=== PATIENT | male | born 1950 | race Caucasian/White ===

== ENCOUNTER 2016-10-09 12:46 | Outpatient (RCR) | payer OTHER ==
[2016-09-05 11:29] LABS: BASOPHILS % (AUTO) 0 % (0-10); EOSINOPHILS % (AUTO) 0 % (0-10); LYMPHOCYTES % (AUTO) 5 % (12-44); MEAN CORPUSCULAR HEMOGLOBIN 32 PG (25-34); MEAN CORPUSCULAR HGB CONC 34 G/DL (32-36); MEAN CORPUSCULAR VOLUME 97 FL (80-99); MEAN PLATELET VOLUME 9.8 FL (7.4-10.4); MONOCYTES # (AUTO) 1.8 X 10^3 (0.0-1.0); MONOCYTES % (AUTO) 9 % (0-12); NEUTROPHILS # (AUTO) 17.5 X 10^3 (1.8-7.8); NEUTROPHILS % (AUTO) 86 % (42-75); PLATELET COUNT 231 10^3/uL (130-400); RED BLOOD COUNT 4.97 10^6/uL (4.35-5.85); RED CELL DISTRIBUTION WIDTH 15.4 % (10.0-14.5); WHITE BLOOD COUNT 20.3 10^3/uL (4.3-11.0)
[2016-09-05 11:51] LABS: ALANINE AMINOTRANSFERASE 68 U/L (0-55); ALBUMIN 3.6 GM/DL (3.2-4.5); ANION GAP 11 MMOL/L (5-14); ASPARTATE AMINO TRANSFERASE 46 U/L (5-34); BILIRUBIN,TOTAL 0.5 MG/DL (0.1-1.0); BLOOD UREA NITROGEN 12 MG/DL (7-18); BUN/CREATININE RATIO 17 (0-20); CALCIUM 9.2 MG/DL (8.5-10.1); CARBON DIOXIDE 33 MMOL/L (21-32); CHLORIDE 94 MMOL/L (98-107); CREATININE SERUM 0.71 MG/DL (0.60-1.30); GFR ESTIMATED > 60; GLUCOSE 154 MG/DL (70-105); HEMOLYSIS 11 (-100-29); ICTERUS 0.4 (-100-1.9); LACTATE DEHYDROGENASE 563 U/L (125-220); LIPEMIA 5 (-100-49); POTASSIUM 3.2 MMOL/L (3.6-5.0); SODIUM 138 MMOL/L (135-145); TOTAL PROTEIN 6.4 GM/DL (6.4-8.2)
[2016-09-11 12:10] LABS: BASOPHILS % (AUTO) 0 % (0-10); EOSINOPHILS # (AUTO) 0.1 10^3/uL (0.0-0.3); EOSINOPHILS % (AUTO) 1 % (0-10); LYMPHOCYTES % (AUTO) 5 % (12-44); MEAN CORPUSCULAR HEMOGLOBIN 33 PG (25-34); MEAN CORPUSCULAR HGB CONC 34 G/DL (32-36); MEAN CORPUSCULAR VOLUME 97 FL (80-99); MEAN PLATELET VOLUME 9.3 FL (7.4-10.4); MONOCYTES # (AUTO) 1.3 X 10^3 (0.0-1.0); MONOCYTES % (AUTO) 7 % (0-12); NEUTROPHILS # (AUTO) 16.9 X 10^3 (1.8-7.8); NEUTROPHILS % (AUTO) 87 % (42-75); PLATELET COUNT 219 10^3/uL (130-400); RED BLOOD COUNT 4.84 10^6/uL (4.35-5.85); RED CELL DISTRIBUTION WIDTH 15.3 % (10.0-14.5); WHITE BLOOD COUNT 19.3 10^3/uL (4.3-11.0)
[2016-09-11 12:37] LABS: ANION GAP 11 MMOL/L (5-14); BLOOD UREA NITROGEN 11 MG/DL (7-18); BUN/CREATININE RATIO 17 (0-20); CALCIUM 8.7 MG/DL (8.5-10.1); CARBON DIOXIDE 36 MMOL/L (21-32); CHLORIDE 93 MMOL/L (98-107); CREATININE SERUM 0.64 MG/DL (0.60-1.30); GFR ESTIMATED > 60; GLUCOSE 145 MG/DL (70-105); HEMOLYSIS 6 (-100-29); ICTERUS 0.5 (-100-1.9); LIPEMIA 0 (-100-49); POTASSIUM 2.8 MMOL/L (3.6-5.0); SODIUM 140 MMOL/L (135-145); URIC ACID 2.4 MG/DL (2.6-7.2)
[2016-09-13 13:29] LABS: ANION GAP 11 MMOL/L (5-14); BLOOD UREA NITROGEN 12 MG/DL (7-18); BUN/CREATININE RATIO 18; CALCIUM 8.5 MG/DL (8.5-10.1); CARBON DIOXIDE 33 MMOL/L (21-32); CHLORIDE 93 MMOL/L (98-107); CREATININE SERUM 0.68 MG/DL (0.60-1.30); GFR ESTIMATED > 60; GLUCOSE 264 MG/DL (70-105); POTASSIUM 3.3 MMOL/L (3.6-5.0); SODIUM 137 MMOL/L (135-145); URIC ACID 2.6 MG/DL (2.6-7.2)
[~2016-10-09] VITALS: Ht 180.3 cm; Wt 73.0 kg
[~2016-10-09 12:46] MED LIST: CARBOPLATIN 400 MG in D5W 50 ML IV(CANCER CTR) 50 ML IV SCH; ETOPOSIDE 170 MG in NORMAL SALINE (CANCER CENTER) 500 ML IV SCH; FOSAPREPITANT 150 MG/NS 150 MG IVPB (CANCER CTR) IV PRN; FUROSEMIDE 40 MG/4 ML INJ (CANCER CTR) IV ONE; NS IV 1000 ML (CANCER CTR) IV SCH; ONDANSETRON 16 MG, DEXAMETHASONE 10 MG/NS 50 ML IVPB IV SCH; PALONOSETRON 0.25 MG, DEXAMETHASONE 10 MG/NS 50 ML IVPB IV PRN; POTASSIUM CHL INJ (CANCER CTR) 10 MEQ in NS (IVPB) CANCER CENTER 50 ML IV ONE
[2016-10-09 13:22] LABS: BASOPHILS # (AUTO) 0.1 10^3/uL (0.0-0.1); BASOPHILS % (AUTO) 0 % (0-10); EOSINOPHILS % (AUTO) 0 % (0-10); LYMPHOCYTES # (AUTO) 0.7 X 10^3 (1.0-4.0); LYMPHOCYTES % (AUTO) 2 % (12-44); MEAN CORPUSCULAR HEMOGLOBIN 33 PG (25-34); MEAN CORPUSCULAR HGB CONC 35 G/DL (32-36); MEAN CORPUSCULAR VOLUME 97 FL (80-99); MONOCYTES # (AUTO) 2.7 X 10^3 (0.0-1.0); MONOCYTES % (AUTO) 9 % (0-12); NEUTROPHILS # (AUTO) 27.5 X 10^3 (1.8-7.8); NEUTROPHILS % (AUTO) 89 % (42-75); PLATELET COUNT 237 10^3/uL (130-400); RED BLOOD COUNT 3.77 10^6/uL (4.35-5.85); RED CELL DISTRIBUTION WIDTH 15.9 % (10.0-14.5)
[2016-10-09 13:57] LABS: ALANINE AMINOTRANSFERASE 79 U/L (0-55); ALBUMIN 2.9 GM/DL (3.2-4.5); ANION GAP 6 MMOL/L (5-14); ASPARTATE AMINO TRANSFERASE 59 U/L (5-34); BILIRUBIN,TOTAL 0.5 MG/DL (0.1-1.0); BLOOD UREA NITROGEN 13 MG/DL (7-18); BUN/CREATININE RATIO 24; CALCIUM 8.5 MG/DL (8.5-10.1); CARBON DIOXIDE 41 MMOL/L (21-32); CHLORIDE 81 MMOL/L (98-107); CREATININE SERUM 0.55 MG/DL (0.60-1.30); GFR ESTIMATED > 60; GLUCOSE 127 MG/DL (70-105); LACTATE DEHYDROGENASE 615 U/L (125-220); MAGNESIUM 1.8 MG/DL (1.8-2.4); POTASSIUM 3.6 MMOL/L (3.6-5.0); SODIUM 128 MMOL/L (135-145); TOTAL PROTEIN 5.5 GM/DL (6.4-8.2)
--- NOTE | 2016-10-09 14:07 | Diagnostic Imaging Report ---
INDICATION: Lymph node cancer and wheezing. PA and lateral views of the chest are obtained. No previous studies available this time for comparison. There is extensive abnormal increased density in right perihilar region which extends peripherally into the upper and mid lung zones. Right anterior chest wall port is in place with catheter tip projecting over the upper aspect of the right atrium. Is no evidence of pneumothorax. Left lung is clear with nonacute fracture involving the lateral aspect of the left eighth and ninth ribs. There is mild blunting of right costophrenic sulcus. IMPRESSION: Extensive infiltrate in the right lung which may be due to central mass resulting in bronchial obstruction. Clinical correlation is recommended. Bronchoscopy or CT imaging of the chest could be considered. Blunting of right gastric sulcus may be due to small amount of pleural fluid or thickening. Dictated by: Dictated on workstation # [id number]
[2016-10-09] MEDS ORDERED: PALONOSETRON HCL 0.25 MG, DEXAMETHASONE PF INJ (CANCER C 5 MG in NS (IVPB) CANCER CENTE... IV PRN (14:30)
[2016-10-09] MEDS ORDERED: D5W IV SCH (14:45)
[2016-10-09] MEDS ORDERED: CARBOPLATIN IV SCH (14:45)
[2016-10-09] MEDS ORDERED: DEXAMETHASONE IV SCH (15:00)
[2016-10-09] MEDS ORDERED: ONDANSETRON IV SCH (15:00)
[2016-10-09] MEDS ORDERED: ETOPOSIDE 150 MG in NORMAL SALINE (CANCER CENTER) 500 ML IV SCH (15:00)
[2016-10-09] MEDS ORDERED: [UNRECOGNIZED DRUG - OTHER] IV SCH (15:00)
[2016-10-11] MEDS ORDERED: OXYC15TA79 PO (09:52)
[2016-10-11] MEDS ORDERED: ZOLP10TA5 PO (09:52)
[2016-10-11] MEDS ORDERED: ALLO300T2 PO (09:52)
[2016-10-11] MEDS ORDERED: ATOR80TA76 PO (09:52)
[2016-10-11] MEDS ORDERED: ALBU18HF2 INH (09:52)
[2016-10-11] MEDS ORDERED: FENT1PAT11 TD (09:53)
[2016-10-11] MEDS ORDERED: MULT-35 PO (10:20)
[2016-10-11] MEDS ORDERED: ONDA8TAB12 PO (10:20)
[2016-10-11] MEDS ORDERED: SENN-140 PO (10:20)
[2016-10-11] MEDS ORDERED: ASPI-983 PO (10:20)
[2016-10-11] MEDS ORDERED: POTA10TA36 PO (10:20)
== END 2016-10-14 | disposition home or self-care (01) ==
LOC: ONC 12:46
PROVIDERS: ATTEND Internal Medicine Hematology & Oncology
DX: Z51.11 Encounter for antineoplastic chemotherapy (principal); C34.90 Malignant neoplasm of unspecified part of unspecified bronchus or lung; C79.51 Secondary malignant neoplasm of bone; Z72.0 Tobacco use
CPT/HCPCS: 36415; 36591; 71020; 80048; 80053; 83615; 83735; 84550; 85025; 96367; 96368; 96375; 96411; 96413; 96417; 99214

== ENCOUNTER 2016-10-10 14:27 | Inpatient (IN) | payer OTHER ==
[2016-10-10] VITALS (8 sets, daily range): BP systolic 100–112; BP diastolic 70–91
[~2016-10-10] VITALS: Ht 182.9 cm; Wt 77.1 kg
[2016-10-10] MEDS ORDERED: DILTIAZEM 25 MG/5 ML INJ (CARDIZEM) VIAL ONE (14:37)
[2016-10-10] MEDS ORDERED: DILTIAZEM 100 MG/VIAL (CARDIZEM) ADD-VANTAGE IV ONE (14:37)
[2016-10-10] MEDS ORDERED: SODIUM CHLORIDE (ADD-VANTAGE) 100 ML IV ONE (14:37)
[2016-10-10] MEDS ORDERED: DILTIAZEM DRIP 100 MG in SODIUM CHLORIDE (ADD-VANTAGE) 100 ML IV SCH (14:45)
[2016-10-10] MEDS ORDERED: DILTIAZEM 25 MG/5 ML INJ (CARDIZEM) VIAL IVP ONE ×2 (14:45→15:30)
[2016-10-10 14:49] LABS: BASOPHILS % (AUTO) 0 % (0-10); EOSINOPHILS # (AUTO) 0.1 10^3/uL (0.0-0.3); EOSINOPHILS % (AUTO) 0 % (0-10); LYMPHOCYTES # (AUTO) 0.5 X 10^3 (1.0-4.0); LYMPHOCYTES % (AUTO) 2 % (12-44); MEAN CORPUSCULAR HEMOGLOBIN 32 PG (25-34); MEAN CORPUSCULAR HGB CONC 33 G/DL (32-36); MEAN CORPUSCULAR VOLUME 98 FL (80-99); MEAN PLATELET VOLUME 10.3 FL (7.4-10.4); MONOCYTES # (AUTO) 2.1 X 10^3 (0.0-1.0); MONOCYTES % (AUTO) 7 % (0-12); NEUTROPHILS # (AUTO) 25.5 X 10^3 (1.8-7.8); NEUTROPHILS % (AUTO) 91 % (42-75); PLATELET COUNT 249 10^3/uL (130-400); RED BLOOD COUNT 3.98 10^6/uL (4.35-5.85); RED CELL DISTRIBUTION WIDTH 16.4 % (10.0-14.5); WHITE BLOOD COUNT 28.1 10^3/uL (4.3-11.0)
--- NOTE | 2016-10-10 14:57 | ED General ---
General Stated Complaint: LETHARGIC Source of Information: Patient Exam Limitations: No Limitations History of Present Illness Time Seen by Provider: 14:35 Initial Comments Here by EMS from [place], [place] with report of shortness of breath and rapid heart rate. Patient has lung cancer and is actively involved in chemotherapy currently with Dr. Mir as his oncologist. Denies fever or chills. Denies nausea or vomiting. Denies chest pain. Does admit to shortness of breath. EMS did give 1 L of fluid in route as well as a DuoNeb and multiple albuterol treatments. This apparently did help his oxygenation until arrival here. He currently is on nasal cannula with an O2 sat of 87 percent with 4 L of flow. Timing/Duration: 24 Hours Severity: Moderate, Severe Associated Systoms: No Chest Pain, No Cough, No Fever/Chills, Malaise, No Nausea/Vomiting, Shortness of Air, Weakness Allergies and Home Medications Allergies Coded Allergies: fluoxetine (Verified Allergy, Unknown, 09/08/16) tramadol (Verified Allergy, Unknown, 09/08/16) varenicline (Verified Allergy, Unknown, 09/08/16) Constitutional: see HPI, No chills, No fever, malaise, weakness EENTM: no symptoms reported Respiratory: see HPI, short of breath, wheezing Cardiovascular: see HPI, No chest pain, edema, other (irregular tachycardia) Gastrointestinal: no symptoms reported Genitourinary: no symptoms reported Musculoskeletal: no symptoms reported Skin: change in color All Other Systems Reviewed Negative Unless Noted: Yes Past Ewpuoye-Nzgsdr-Hfbwmj Hx Patient Social History Alcohol Use: Denies Use Recreational Drug Use: No Smoking Status: Current Everyday Smoker Type Used: Cigarettes Surgeries HX Surgeries: Yes (Port-A-Cath placement) Respiratory Hx Respiratory Disorders: Yes (lung cancer have 5 right) Cardiovascular Hx Cardiac Disorders: Yes Cardiac Disorders: High Cholesterol Musculoskeletal Hx Musculoskeletal Disorders: Yes Musculoskeletal Disorders: Gout Cancer Hx Cancer: Yes Cancer: Liver, Bone, Lung (so bone liver and) Reviewed Nursing Assessment Reviewed/Agree w Nursing PMH: No Family Medical History Significant Family History: No Pertinent Family Hx Physical Exam Vital Signs Vital Sign - Last 12Hours 10/10/16 10/10/16 10/10/16 14:40 14:56 14:58 Temp 97.6 Pulse 140 Resp 16 B/P (MAP) 104/87 Pulse Ox 97 O2 Flow Rate 40.00 FiO2 60 Capillary Refill : General Appearance: WD/WN, Moderate Distress (respiratory) HEENT: PERRL/EOMI, Pharynx Normal Neck: Non Tender, Supple Respiratory: Lungs Clear, Normal Breath Sounds Cardiovascular: No Murmur, Irregularly Irregular, Tachycardia Gastrointestinal: Non Tender, Soft Back: Normal Inspection, No CVA Tenderness, No Vertebral Tenderness Extremity: Non Tender, No Calf Tenderness, Pedal Edema Focused Exam Lactic Acid Level Laboratory Tests Test 10/10/16 14:39 Lactic Acid Level 1.78 MMOL/L (0.50-2.00) Progress/Results/Core Measures Results/Orders Lab Results Laboratory Tests Test 10/10/16 14:39 Range/Units White Blood Count 28.1 H 4.3-11.0 10^3/uL Red Blood Count 3.98 L 4.35-5.85 10^6/uL Hemoglobin 12.9 L 13.3-17.7 G/DL Hematocrit 39 L 40-54 % Mean Corpuscular Volume 98 80-99 FL Mean Corpuscular Hemoglobin 32 25-34 PG Mean Corpuscular Hemoglobin Concent 33 32-36 G/DL Red Cell Distribution Width 16.4 H 10.0-14.5 % Platelet Count 249 130-400 10^3/uL Mean Platelet Volume 10.3 7.4-10.4 FL Neutrophils (%) (Auto) 91 H 42-75 % Lymphocytes (%) (Auto) 2 L 12-44 % Monocytes (%) (Auto) 7 0-12 % Eosinophils (%) (Auto) 0 0-10 % Basophils (%) (Auto) 0 0-10 % Neutrophils # (Auto) 25.5 H 1.8-7.8 X 10^3 Lymphocytes # (Auto) 0.5 L 1.0-4.0 X 10^3 Monocytes # (Auto) 2.1 H 0.0-1.0 X 10^3 Eosinophils # (Auto) 0.1 0.0-0.3 10^3/uL Basophils # (Auto) 0.0 0.0-0.1 10^3/uL Neutrophils % (Manual) 93 % Monocytes % (Manual) 7 % Hypersegmented Neutrophils MODERATE Toxic Granulation 2+ Sodium Level 137 135-145 MMOL/L Potassium Level 3.4 L 3.6-5.0 MMOL/L Chloride Level 92 L 98-107 MMOL/L Carbon Dioxide Level 32 21-32 MMOL/L Anion Gap 13 5-14 MMOL/L Blood Urea Nitrogen 15 7-18 MG/DL Creatinine 0.53 L 0.60-1.30 MG/DL Estimat Glomerular Filtration Rate > 60 BUN/Creatinine Ratio 28 Glucose Level 177 H 70-105 MG/DL Lactic Acid Level 1.78 0.50-2.00 MMOL/L Calcium Level 8.3 L 8.5-10.1 MG/DL Magnesium Level 1.9 1.8-2.4 MG/DL Total Bilirubin 0.5 0.1-1.0 MG/DL Aspartate Amino Transf (AST/SGOT) 54 H 5-34 U/L Alanine Aminotransferase (ALT/SGPT) 77 H 0-55 U/L Alkaline Phosphatase 216 H 40-136 U/L Lactate Dehydrogenase 646 H 125-220 U/L Troponin I < 0.30 <0.30 NG/ML B-Type Natriuretic Peptide 120.3 H <100.0 PG/ML Total Protein 5.6 L 6.4-8.2 GM/DL Albumin 2.8 L 3.2-4.5 GM/DL My Orders Orders - NINFA CORLEY MD Sodium Chloride (Add-[place]) (Ns (Add-V (10/10/16 14:37) Diltiazem Drip (Cardizem Drip) (10/10/16 14:37) BNP (10/10/16 14:41) Cbc With Automated Diff (10/10/16 14:41) Comprehensive Metabolic Panel (10/10/16 14:41) Magnesium (10/10/16 14:41) Troponin I (10/10/16 14:41) Saline Lock/Iv-Start (10/10/16 14:41) Ekg Tracing (10/10/16 14:41) O2 (10/10/16 14:41) Monitor-Rhythm Ecg Trace Only (10/10/16 14:41) Chest 1 View, Ap/Pa Only (10/10/16 14:41) Sodium Chloride (Ad... W/Diltiazem Drip (10/10/16 14:45) Diltiazem Injection (Cardizem Injection) (10/10/16 14:45) Lactic Acid Analyzer (10/10/16 14:41) Blood Culture (10/10/16 14:41) Diltiazem Injection (Cardizem Injection) (10/10/16 14:37) Manual Differential (10/10/16 14:39) LDH (10/10/16 15:23) Diltiazem Injection (Cardizem Injection) (10/10/16 15:30) Ct Chest/Abdomen W (10/10/16 15:32) Iohexol Injection (Omnipaque 350 Mg/Ml 1 (10/10/16 15:45) Ns (Ivpb) (Sodium Chloride 0.9% Ivpb Bag (10/10/16 15:45) Fentanyl Injection (Sublimaze Injection (10/10/16 15:40) Piperacillin Sodium/Tazobactam (Zosyn Vi (10/10/16 17:00) Ns (Ivpb) (Sodium Chloride 0.9% Ivpb Bag (10/10/16 17:10) Medications Given in ED Current Medications Medications Dose Ordered Sig/Domingo Route Start Time Stop Time Status Last Admin Dose Admin Diltiazem HCl 10 mg ONCE ONCE IVP 10/10/16 14:45 10/10/16 14:46 DC 10/10/16 14:54 10 MG Diltiazem HCl 10 mg ONCE ONCE IVP 10/10/16 15:30 10/10/16 15:31 DC 10/10/16 15:10 10 MG Iohexol 100 ml ONCE ONCE IV 10/10/16 15:45 10/10/16 15:55 DC 10/10/16 16:37 100 ML Piperacillin Sod/ Tazobactam Sod 4.5 gm ONCE ONCE IV 10/10/16 17:00 10/10/16 17:01 DC 10/10/16 17:26 4.5 GM Sodium Chloride 100 ml ONCE ONCE IV 10/10/16 15:45 10/10/16 15:55 DC 10/10/16 16:37 80 ML Vital Signs/I&O Vital Sign - Last 12Hours 10/10/16 10/10/16 10/10/16 14:40 14:56 14:58 Temp 97.6 Pulse 140 140 Resp 16 16 B/P (MAP) 104/87 104/87 Pulse Ox 97 98 98 O2 Flow Rate 40.00 40.00 FiO2 60 Progress Note : Progress Note Seen and evaluated on arrival by EMS. IV by EMS. Labs, EKG and chest x-ray ordered. EKG shows atrial fibrillation with rapid ventricular response. Patient initiated on Vapotherm as well as started on Cardizem drip of 10 mg an hour after bolus of 10 mg. Patient's oxygenation improved to 97 percent on Vapotherm treatment. Monitor patient. 1523: Patient has advanced cancer per the with multiple metastatic points including bone and liver. I did go over the evaluation thus far and findings as well as concerns with the patient' s . He does report that they do not want heroic measures and patient is DO NOT RESUSCITATE. She has not elected for hospice with him yet but is interested in palliative care consult for end-of-life needs and pain control as needed. Palliative care consult placed. Patient seen by Be Corley, palliative care RN at 1540. 1645: Significant pneumonia and likely advancement of cancer noted on CT scan. I did discuss the case with Dr. ESPITIA. He will admit patient to the ICU for continuing therapy related to pneumonia. Initiated Zosyn 4.5 g IV and we will continue this as well as Levaquin and vancomycin for likely postobstructive pneumonia. I did discuss the case with Dr. Suero at 1655. He will follow in consult. I discussed the case with Dr. Phillips at 1706. He believes the heart rate is likely related to the underlying disease process. He is happy with A. fib controlled at heart rate less than 120 , which it currently is. I agree. We will continue Cardizem at 20 mg/h drip. We will continue Vapotherm. I did discuss all the findings and concerns with the patient's . She is understanding of the challenges related to underlying disease process of cancer with pneumonia. We will continue with IV antibiotics in hopes that that helps resolve some of the symptoms but we will not significant heroic measures and patient is DO NOT RESUSCITATE and DO NOT INTUBATE. Admit, inpatient status, critical condition. Off Sepsis protocol due to palliative care. Family agrees with plan. ECG Initial ECG Impression Date: Oct 10, 2016 Initial ECG Impression Time: 14:38 Initial ECG Rate: 137 Initial ECG Rhythm: A Fib/Flutter Initial ECG Impression: Atrial Fibrillation w/RVR Comment Atrial fibrillation with rapid ventricular response. Normal axis. No evidence of ST elevation [place]. No previous available for comparison. Interpreted by me. Diagnostic Imaging Diagonstic Imaging: Xray Plain Films/CT/US/NM/MRI: chest Comments NAME: BERE VAUGHAN [facility] REC#: [id number] PT STATUS: REG ER : 1950 PHYSICIAN: NINFA CORLEY MD ADMIT DATE: 10/10/16/ER Signed Date of Exam: 10/10/16 CHEST 1 VIEW, AP/PA ONLY INDICATION: Increased weakness, somnolence and malaise. EXAM: Frontal chest obtained at 3:31 hours p.m. and compared to yesterday. FINDINGS: There is extensive infiltrate throughout the right midlung and upper lobe, with increasing density in the right midlung compared to the prior study. There are some infiltrate in the right base, as well. There is no left-sided infiltrate. There is no pneumothorax or pleural fluid. Port-A-Cath is unchanged. IMPRESSION: Worsening extensive infiltrate in the right lung compared to the previous day. No pneumothorax or pleural fluid or other new finding. Dictated by: Dictated on workstation # [id number] Dict: 10/10/16 1539 Trans: 10/10/16 1546 Interpreted by: CAITLIN VELAZQUEZ MD Electronically signed by: CAITLIN VELAZQUEZ MD 10/10/16 1546 Reviewed: Reviewed by Me Diagonstic Imaging: CT Plain Films/CT/US/NM/MRI: chest, abdomen Comments VIA [facility] [place], [place] NAME: BERE VAUGHAN [facility] REC#: [id number] PT STATUS: REG ER : 1950 PHYSICIAN: NINFA CORLEY MD ADMIT DATE: 10/10/16/ER Draft Date of Exam:10/10/16 CT CHEST/ABDOMEN W PROCEDURE: CT chest and abdomen with contrast. TECHNIQUE: Multiple contiguous axial images were obtained through the chest and abdomen after the administration of intravenous contrast. INDICATION: History of lung cancer. A-Fib. 100 mL of Omnipaque 350 is administered intravenously. FINDINGS: CT chest: There is a heterogeneous mass in the medial aspect of the right upper lobe inseparable from a right paratracheal mediastinal mass and extending into the right hilum. This is collectively measuring 9.5 x 6.8 x 5.2 cm. There is also suspected extension in an infiltrative pattern into the right lung as well mostly involving the right upper lobe, which demonstrates obliteration of right upper lobe pulmonary artery and right upper lobe bronchus with largely atelectatic and consolidated right upper lobe. There is a moderate right pleural effusion. Atelectasis in the right lung base is seen. The left lung demonstrates mild dependent basilar atelectasis. The heart size is normal. The thoracic aorta is normal in caliber. The osseous structures appear grossly unremarkable. CT abdomen: There are numerous hepatic masses involving all lobes and largest in the left hepatic lobe measuring 7.3 x 5.5 cm compatible with metastases. The gallbladder is contracted with wall thickening and pericholecystic fluid. No calcified stones seen. The pancreas, the spleen, and the adrenal glands appear unremarkable. The abdominal aorta is normal in caliber. No para-aortic significantly enlarged lymph node seen. The kidneys have symmetric enhancement and contrast excretion. There is no hydronephrosis. IMPRESSION: CT chest: 1. There is a large central right upper lobe mass confluent with right paratracheal and right hilar lymph node masses with associated right upper lobe consolidation compatible with postobstructive atelectasis or pneumonia. 2. Moderate right pleural effusion. CT abdomen: 1. Numerous liver metastases. 2. Gallbladder wall thickening and pericholecystic fluid seen. The gallbladder is contracted with no calcified stones identified. This could potentially be secondary to the liver metastases; however, if there is a clinical concern for cholecystitis, then gallbladder ultrasound could be helpful. Dictated on workstation # [id number] Dict: 10/10/16 1636 Trans: 10/10/16 1656 [id number] Interpreted by: ARNOLDO MACE MD Electronically signed by: Departure Communication Time/Spoke to Admitting Phy: 16:45 Time/Spoke to Consulting Physi: 16:55 Impression Impression: Primary Impression: Metastatic lung cancer (metastasis from lung to other site) Qualified Codes: C34.91 - Malignant neoplasm of unspecified part of right bronchus or lung Additional Impression: Pneumonia involving right lung Qualified Codes: J18.1 - Lobar pneumonia, unspecified organism Disposition: ADMITTED INPATIENT Condition: Critical Decision to Admit Reason: Admit from ER (General) Decision to Admit/Date: Oct 10, 2016 Time/Decision to Admit Time: 16:45 Departure-Patient Inst. Referrals: NO,LOCAL PHYSICIAN (PCP/Family) Primary Care Physician NINFA CORLEY MD Oct 10, 2016 14:57
[2016-10-10 15:03] LABS: NEUTROPHILS % (MANUAL) 93 %
[2016-10-10 15:10] LABS: ALANINE AMINOTRANSFERASE 77 U/L (0-55); ALBUMIN 2.8 GM/DL (3.2-4.5); ANION GAP 13 MMOL/L (5-14); ASPARTATE AMINO TRANSFERASE 54 U/L (5-34); BILIRUBIN,TOTAL 0.5 MG/DL (0.1-1.0); BLOOD UREA NITROGEN 15 MG/DL (7-18); BUN/CREATININE RATIO 28; CALCIUM 8.3 MG/DL (8.5-10.1); CARBON DIOXIDE 32 MMOL/L (21-32); CHLORIDE 92 MMOL/L (98-107); CREATININE SERUM 0.53 MG/DL (0.60-1.30); GFR ESTIMATED > 60; GLUCOSE 177 MG/DL (70-105); MAGNESIUM 1.9 MG/DL (1.8-2.4); POTASSIUM 3.4 MMOL/L (3.6-5.0); SODIUM 137 MMOL/L (135-145); TOTAL PROTEIN 5.6 GM/DL (6.4-8.2)
[2016-10-10 15:16] LABS: TROPONIN I < 0.30 NG/ML (<0.30)
[2016-10-10] MEDS ORDERED: fentaNYL INJECTION 100 MCG/2 ML AMP IVP STA (15:40)
[2016-10-10] MEDS ORDERED: IOHEXOL 350 MG/ML 100 ML (OMNIPAQUE 350) VIAL IV ONE (15:45)
[2016-10-10] MEDS ORDERED: NS 100 ML (IVPB) BAG IV ONE (15:45)
--- NOTE | 2016-10-10 15:45 | Diagnostic Imaging Report ---
INDICATION: Increased weakness, somnolence and malaise. EXAM: Frontal chest obtained at 3:31 hours p.m. and compared to yesterday. FINDINGS: There is extensive infiltrate throughout the right midlung and upper lobe, with increasing density in the right midlung compared to the prior study. There are some infiltrate in the right base, as well. There is no left-sided infiltrate. There is no pneumothorax or pleural fluid. Port-A-Cath is unchanged. IMPRESSION: Worsening extensive infiltrate in the right lung compared to the previous day. No pneumothorax or pleural fluid or other new finding. Dictated by: Dictated on workstation # [id number]
--- NOTE | 2016-10-10 16:57 | Diagnostic Imaging Report ---
PROCEDURE: CT chest and abdomen with contrast. TECHNIQUE: Multiple contiguous axial images were obtained through the chest and abdomen after the administration of intravenous contrast. INDICATION: History of lung cancer. A-Fib. 100 mL of Omnipaque 350 is administered intravenously. FINDINGS: CT chest: There is a heterogeneous mass in the medial aspect of the right upper lobe inseparable from a right paratracheal mediastinal mass and extending into the right hilum. This is collectively measuring 9.5 x 6.8 x 5.2 cm. There is also suspected extension in an infiltrative pattern into the right lung as well mostly involving the right upper lobe, which demonstrates obliteration of right upper lobe pulmonary artery and right upper lobe bronchus with largely atelectatic and consolidated right upper lobe. There is a moderate right pleural effusion. Atelectasis in the right lung base is seen. The left lung demonstrates mild dependent basilar atelectasis. The heart size is normal. The thoracic aorta is normal in caliber. The osseous structures appear grossly unremarkable. CT abdomen: There are numerous hepatic masses involving all lobes and largest in the left hepatic lobe measuring 7.3 x 5.5 cm compatible with metastases. The gallbladder is contracted with wall thickening and pericholecystic fluid. No calcified stones seen. The pancreas, the spleen, and the adrenal glands appear unremarkable. The abdominal aorta is normal in caliber. No para-aortic significantly enlarged lymph node seen. The kidneys have symmetric enhancement and contrast excretion. There is no hydronephrosis. IMPRESSION: CT chest: 1. There is a large central right upper lobe mass confluent with right paratracheal and right hilar lymph node masses with associated right upper lobe consolidation compatible with postobstructive atelectasis or pneumonia. 2. Moderate right pleural effusion. CT abdomen: 1. Numerous liver metastases. 2. Gallbladder wall thickening and pericholecystic fluid seen. The gallbladder is contracted with no calcified stones identified. This could potentially be secondary to the liver disease; however, if there is a clinical concern for cholecystitis, then gallbladder ultrasound could be helpful. Dictated by: Dictated on workstation # [id number]
[2016-10-10] MEDS ORDERED: PIPERACILLIN/TAZO 4.5 GM VIAL (ZOSYN) IV ONE (17:00)
[2016-10-10] MEDS ORDERED: NS (IVPB) 100 ML ONE (17:10)
[2016-10-10] MEDS ORDERED: CATHETER FLUSH 10 ML SYR IV PRN (18:30)
[2016-10-10] MEDS: DILTIAZEM DRIP 100 MG/NS 100 ML IV SCH ×4 (18:30→19:45)
[2016-10-10] MEDS: NS IV 1000 ML 1,000 ML IV SCH (18:36)
[2016-10-10] MEDS: LEVOFLOXACIN 750 MG/D5W 150 ML PRE-MIX IV SCH (18:44)
[2016-10-10] MEDS ORDERED: VANCOMYCIN 1,750 MG/NS 500 ML IVPB IV NR ×2 (19:00)
[2016-10-10] MEDS: fentaNYL INJECTION 100 MCG/2 ML AMP IV PRN ×2 (21:45→23:12)
[2016-10-10 22:24] LABS: BILIRUBIN,URINE NEGATIVE (NEGATIVE); KETONES,URINE NEGATIVE (NEGATIVE); LEUKOCYTE ESTERASE ,URINE NEGATIVE (NEGATIVE); NITRITE,URINE NEGATIVE (NEGATIVE); PH,URINE 6.5 (5-9); PROTEIN,URINE 3+ (NEGATIVE); UROBILINOGEN,URINE NORMAL (NORMAL)
[2016-10-10 22:30] LABS: WBC,URINE RARE /HPF
[2016-10-10] MEDS ORDERED: RT-ALBUTEROL/IPRATROPIUM 3 ML (DUONEB) VIAL INH PRN (22:30)
[2016-10-10] MEDS: PIPERACILLIN/TAZOBACTAM 4.5 GM/NS100 ML IVPB IV SCH ×2 (22:56)
[2016-10-11] VITALS (18 sets, daily range): BP systolic 102–134; BP diastolic 73–98
[2016-10-11] MEDS: fentaNYL INJECTION 100 MCG/2 ML AMP IV PRN ×12 (00:03→16:30)
[2016-10-11] MEDS ORDERED: fentaNYL INJECTION 100 MCG/2 ML AMP ONE ×3 (01:11→02:44)
[2016-10-11] MEDS: NS IV 1000 ML 1,000 ML IV SCH ×3 (03:04→16:34)
[2016-10-11 04:48] LABS: BASOPHILS % (AUTO) 0 % (0-10); EOSINOPHILS % (AUTO) 0 % (0-10); LYMPHOCYTES # (AUTO) 0.5 X 10^3 (1.0-4.0); LYMPHOCYTES % (AUTO) 2 % (12-44); MEAN CORPUSCULAR HEMOGLOBIN 33 PG (25-34); MEAN CORPUSCULAR HGB CONC 33 G/DL (32-36); MEAN CORPUSCULAR VOLUME 99 FL (80-99); MEAN PLATELET VOLUME 10.8 FL (7.4-10.4); MONOCYTES # (AUTO) 1.7 X 10^3 (0.0-1.0); MONOCYTES % (AUTO) 7 % (0-12); NEUTROPHILS % (AUTO) 91 % (42-75); PLATELET COUNT 212 10^3/uL (130-400); RED BLOOD COUNT 3.73 10^6/uL (4.35-5.85); WHITE BLOOD COUNT 24.2 10^3/uL (4.3-11.0)
[2016-10-11] MEDS: DILTIAZEM DRIP 100 MG/NS 100 ML IV SCH ×6 (04:51→14:43)
[2016-10-11 05:11] LABS: ALANINE AMINOTRANSFERASE 69 U/L (0-55); ALBUMIN 2.4 GM/DL (3.2-4.5); ANION GAP 6 MMOL/L (5-14); ASPARTATE AMINO TRANSFERASE 102 U/L (5-34); BILIRUBIN,TOTAL 0.5 MG/DL (0.1-1.0); BLOOD UREA NITROGEN 14 MG/DL (7-18); BUN/CREATININE RATIO 25; CALCIUM 7.8 MG/DL (8.5-10.1); CHLORIDE 95 MMOL/L (98-107); CREATININE SERUM 0.55 MG/DL (0.60-1.30); GFR ESTIMATED > 60; GLUCOSE 125 MG/DL (70-105); SODIUM 137 MMOL/L (135-145); TOTAL PROTEIN 6.2 GM/DL (6.4-8.2)
[2016-10-11 05:45] LABS: POTASSIUM 3.5 MMOL/L (3.6-5.0)
[2016-10-11 05:48] LABS: CARBON DIOXIDE 37 MMOL/L (21-32); MAGNESIUM 1.7 MG/DL (1.8-2.4)
[2016-10-11] MEDS ORDERED: POTASSIUM CL 10MEQ/50ML IVPB 50 ML IV SCH (06:00)
[2016-10-11] MEDS ORDERED: KCL 20 MEQ TAB (K-DUR) PO SCH (06:00)
[2016-10-11] MEDS ORDERED: MAGNESIUM 1 GM/100 ML IVPB 100 ML IV SCH (06:00)
[2016-10-11] MEDS: POTASSIUM CL 10MEQ/50ML IVPB 50 ML IV SCH ×2 (06:29→07:03)
[2016-10-11] MEDS: MAGNESIUM 1 GM/100 ML IVPB 100 ML IV SCH ×2 (06:29→07:03)
[2016-10-11] MEDS: PIPERACILLIN/TAZOBACTAM 4.5 GM/NS100 ML IVPB IV SCH ×4 (06:30→14:43)
[2016-10-11] MEDS: RT-ALBUTEROL/IPRATROPIUM 3 ML (DUONEB) VIAL INH SCH ×3 (06:49→14:35)
[2016-10-11] MEDS ORDERED: VANCOMYCIN 1 GM/NS 250 ML IVPB IV SCH ×2 (07:00)
--- NOTE | 2016-10-11 07:35 | Pulmonary Consultation ---
History of Present Illness History of Present Illness Date of Consultation 10/11/16 07:29 Time Seen by Provider: 07:30 Date of Admission History of Present Illness 65yo with hx of small cell lung cancer and sees Dr. Mir presented to ED via EMS secondary to progressive SOB and palpitations. Denies f/c, n/v, CP. Upon arrival pt was on 4 liters NC with Sp02 of 87%. Pt received SVN txs in EMS which seemed to help. PT started chemotherapy in August. states that he has been very lethargic and difficult to arouse. I am consulted for pulmonary management. Unable to obtain ROS secondary to MS. Allergies and Home Medications Allergies Coded Allergies: fluoxetine (Verified Allergy, Unknown, 09/08/16) tramadol (Verified Allergy, Unknown, 09/08/16) varenicline (Verified Allergy, Unknown, 09/08/16) Past Laiwggs-Vxjlhl-Abthwi Hx Patient Social History Alcohol Use: Denies Use Recreational Drug Use: No Smoking Status: Current Everyday Smoker Type Used: Cigarettes Recent Foreign Travel: No Contact w/Someone Who Travel: No Recent Infectious Disease Expo: No Recent Hopitalizations: No Physical Abuse Screen: No Sexual Abuse: No Seasonal Allergies Seasonal Allergies: No Surgeries HX Surgeries: Yes (Port-A-Cath placement) Respiratory Hx Respiratory Disorders: Yes (lung cancer have 5 right) Respiratory Disorders: Pneumonia Cardiovascular Hx Cardiac Disorders: Yes Cardiac Disorders: High Cholesterol Gastrointestinal Gastrointestinal Disorders: Gastroesophageal Reflux Musculoskeletal Hx Musculoskeletal Disorders: Yes Musculoskeletal Disorders: Gout HEENT HEENT Disorders: Cataract Loss of Vision: Denies Hearing Impairment: Denies Cancer Hx Cancer: Yes Cancer: Liver, Bone, Lung Psychosocial Behavioral Health Disorders: Depression Blood Transfusions Adverse Reaction to a Blood Tr: No Reviewed Nursing Assessment Reviewed/Agree w Nursing PMH: No Family Medical History Significant Family History: No Pertinent Family Hx Family Medial History: Cardiovascular disease 19 FATHER ( at 52 from [place]) G8 BROTHER (One brother had failed heart transplant one brother CABG CHF [place]) Diabetes mellitus G8 SISTER Exam Exam Vital Signs Date Time Temp Pulse Resp B/P (MAP) Pulse Ox O2 Delivery O2 Flow Rate FiO2 10/11/16 06:49 92 Nasal Cannula 6.00 10/11/16 06:00 118 6 131/86 94 High Flow N/C 6.00 10/11/16 05:00 121 10 133/80 97 High Flow N/C 6.00 10/11/16 04:00 104 13 111/80 100 High Flow N/C 6.00 10/11/16 04:00 97.9 10/11/16 04:00 97 Vapotherm 30.00 60 10/11/16 04:00 96 High Flow N/C 6.00 10/11/16 03:00 114 13 109/73 100 High Flow N/C 8.00 10/11/16 02:00 91 17 113/98 91 High Flow N/C 8.00 10/11/16 01:00 98 17 119/86 96 Vapotherm 60.00 30.00 10/11/16 01:00 125 10/11/16 00:00 112 14 113/78 98 Vapotherm 60.00 30.00 10/11/16 00:00 98.3 10/11/16 00:00 97 Vapotherm 30.00 60 10/11/16 00:00 97 Vapotherm 30.00 10/10/16 23:00 101 16 112/91 98 Vapotherm 60.00 30.00 10/10/16 22:47 97 Vapotherm 30.00 70 10/10/16 22:15 95 97 70 10/10/16 22:00 105 24 112/84 99 Vapotherm 70.00 30.00 10/10/16 21:00 96 8 108/80 97 Vapotherm 70.00 30.00 10/10/16 21:00 97 Vapotherm 30.00 10/10/16 20:00 97 Vapotherm 30.00 70 10/10/16 20:00 110 25 105/70 100 Vapotherm 70.00 30.00 10/10/16 20:00 98.0 10/10/16 19:45 95 10/10/16 19:00 116 23 101/72 99 Vapotherm 70.00 30.00 10/10/16 19:00 102 10/10/16 18:29 96 Vapotherm 30.00 70 10/10/16 18:15 108/77 93 10/10/16 18:15 25 Vapotherm 70.00 30.00 10/10/16 18:00 120 104/90 93 Vapotherm 70.00 30.00 10/10/16 18:00 Vapotherm 30.00 70 10/10/16 18:00 Vapotherm 30.00 70 10/10/16 17:55 98.2 10/10/16 17:45 114 20 98 Vapotherm 60.00 10/10/16 14:58 97.6 140 16 104/87 98 40.00 10/10/16 14:56 140 16 104/87 98 10/10/16 14:40 97 40.00 60 I & O 10/11/16 07:00 Intake Total 750 ml Output Total 1600 ml Balance -850 ml General Appearance: WD/WN, Moderate Distress (respiratory) HEENT: PERRL/EOMI, Pharynx Normal Neck: Non Tender, Supple Respiratory: Lungs Clear, Normal Breath Sounds Cardiovascular: No Murmur, Irregularly Irregular, Tachycardia Capillary Refill: Less Than 3 Seconds Extremity: Non Tender, No Calf Tenderness, Pedal Edema Neurologic/Psychiatric: Other (very lethargic ) Skin: Normal Color, Warm/Dry Lymphatic: No Adenopathy Results Lab Laboratory Tests 10/10/16 14:39 10/11/16 04:40 Assessment/Plan Assessment/Plan -Small cell lung cancer with hepatic mets -ONcology consulted -Post obstructive PNA with sepsis and small pleural effusion currently on Levaquin, Zosyn and vanco -D/C Levaquin -Freeman cultures 255 Clinical Quality Measures DVT/VTE Risk/Contraindication: Risk Factor Score Per Nursin RFS Level Per Nursing on Admit: 4+=Very High DEVIN ISLAS DO Oct 11, 2016 07:34
--- NOTE | 2016-10-11 08:25 | Diagnostic Imaging Report ---
INDICATION: Metastatic lung cancer, dyspnea. TECHNIQUE: Single view chest 5:27 AM. CORRELATION STUDY: 10/10/2016 FINDINGS: Right IJ Krdnio-x-Jeld catheter is again noted tip at the level of the right atrium. Heart size stable. Significant opacification due to the large portion of the right lung medina again demonstrated overall generally stable. Left lung mildly hyperinflated but relatively clear. Old healed left posterior rib fractures. IMPRESSION: 1. Extensive infiltrate throughout the right lung overall relatively stable. Dictated by: Dictated on workstation # [id number]
[2016-10-11] MEDS ORDERED: RT-ALBUTEROL/IPRATROPIUM 3 ML (DUONEB) VIAL INH SCH (09:00)
--- NOTE | 2016-10-11 09:02 | Consultation-Cardiology ---
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 Has been on chemo but clinical condition has continued to deteriorate. He was brought to the ER by his yesterday with increasing weakness, somnolence and confusion. Was also found to be in a fib and we have been asked in card consult Has low back and hip and R rib cage pain that has been severe. Has been on narcotic analgesics Denies any card history Has recently been having leg swelling. Has gained 12 lbs since first chemo about a month Is currently on palliative care. Is thinking of discontinuing any further therapy for widespread met CA Review of Systems-Cardiology Review of Systems Constitutional: lightheadedness, malaise, tiredness, weight gain Eyes: No vision change Ears/Nose/Throat: No ear discharge, No nasal drainage, No recent hearing loss Respiratory: cough, shortness of breath Cardiovascular: chest pain, edema, palpitations Gastrointestinal: No nausea, poor appetite, No vomiting, No stool coloration changes Genitourinary: No dysuria, No hematuria Musculoskeletal: back pain Skin: No ulcerations Psychiatric/Neurological: No focal weakness, No seizure, No syncope Hematologic: No bleeding abnormalities All Other Systems Reviewed Negative Unless Noted: Yes [id number]-Xskpic Hx Patient Social History Alcohol Use: Denies Use Recreational Drug Use: No Smoking Status: Current Everyday Smoker Type Used: Cigarettes Recent Foreign Travel: No Recent Infectious Disease Expo: No Hospitalization with Isolation: Denies Physical Abuse Screen: No Sexual Abuse: No Past Medical History PMH As described under Assessment. Family Medical History Family History: Cardiovascular disease 19 FATHER ( at 52 from [place]) G8 BROTHER (One brother had failed heart transplant one brother CABG CHF [place]) Diabetes mellitus G8 SISTER Allergies and Home Medications Allergies Coded Allergies: fluoxetine (Verified Allergy, Unknown, 09/08/16) tramadol (Verified Allergy, Unknown, 09/08/16) varenicline (Verified Allergy, Unknown, 09/08/16) Physical Exam-Cardiology Physical Exam Vital Signs/I&O Vital Sign - Last 12Hours 10/10/16 10/10/16 10/10/16 10/10/16 22:00 22:15 22:47 23:00 Pulse 105 95 101 Resp 24 16 B/P (MAP) 112/84 112/91 Pulse Ox 99 97 97 98 O2 Delivery Vapotherm Vapotherm Vapotherm O2 Flow Rate 70.00 30.00 60.00 30.00 30.00 FiO2 70 70 10/11/16 10/11/16 10/11/16 10/11/16 00:00 00:00 00:00 00:00 Temp 98.3 Pulse 112 Resp 14 B/P (MAP) 113/78 Pulse Ox 97 97 98 O2 Delivery Vapotherm Vapotherm Vapotherm O2 Flow Rate 30.00 30.00 60.00 30.00 FiO2 60 10/11/16 10/11/16 10/11/16 10/11/16 01:00 01:00 02:00 03:00 Pulse 125 98 91 114 Resp 17 17 13 B/P (MAP) 119/86 113/98 109/73 Pulse Ox 96 91 100 O2 Delivery Vapotherm High Flow N/C High Flow N/C O2 Flow Rate 60.00 8.00 8.00 30.00 10/11/16 10/11/16 10/11/16 10/11/16 04:00 04:00 04:00 04:00 Temp 97.9 Pulse 104 Resp 13 B/P (MAP) 111/80 Pulse Ox 96 97 100 O2 Delivery High Flow N/C Vapotherm High Flow N/C O2 Flow Rate 6.00 30.00 6.00 FiO2 60 10/11/16 10/11/16 10/11/16 10/11/16 05:00 06:00 06:49 07:00 Pulse 121 118 120 Resp 10 6 B/P (MAP) 133/80 131/86 Pulse Ox 97 94 92 O2 Delivery High Flow N/C High Flow N/C Nasal Cannula O2 Flow Rate 6.00 6.00 6.00 10/11/16 10/11/16 10/11/16 07:00 07:43 08:00 Temp 97.9 Pulse 120 112 117 Resp 13 14 13 B/P (MAP) 104/74 104/74 131/74 Pulse Ox 93 96 96 O2 Delivery High Flow N/C High Flow N/C O2 Flow Rate 6.00 6.00 6.00 Intake and Output 10/11/16 00:00 Intake Total 700 ml Output Total 500 ml Balance 200 ml Capillary Refill : Less Than 3 Seconds Constitutional: other (somnolent but wakes and seem oriented when awake) HEENT: PERRL, No discharge, No EOMI, hearing is well preserved, No xanthelasmas are seen Neck: No carotid bruit, carotid pulses are 2 + bilaterally, with good upstrokes Respiratory: No accessory muscle use, other (diminished air entry at the bases) Cardiovascular: irregularly irregular, S1 and S2, systolic murmur (soft BRETT at the card base) Gastrointestinal: No tender, No guarding, No rebound, audible bowel sounds Extremities: No clubbing, No cyanosis, significant edema (bilateral pitting leg edema 2-3+) Neurologic/Psychiatric: other (generally weak and tired and somnolent), grossly intact Skin: No rash on exposed areas, No ulcerations on exposed areas Data Review Labs Laboratory Tests 10/10/16 14:39: White Blood Count 28.1H, Red Blood Count 3.98L, Hemoglobin 12.9L, Hematocrit 39L , Mean Corpuscular Volume 98, Mean Corpuscular Hemoglobin 32, Mean Corpuscular Hemoglobin Concent 33, Red Cell Distribution Width 16.4H, Platelet Count 249, Mean Platelet Volume 10.3, Neutrophils (%) (Auto) 91H, Lymphocytes (%) (Auto) 2L , Monocytes (%) (Auto) 7, Eosinophils (%) (Auto) 0, Basophils (%) (Auto) 0, Neutrophils # (Auto) 25.5H, Lymphocytes # (Auto) 0.5L, Monocytes # (Auto) 2.1H, Eosinophils # (Auto) 0.1, Basophils # (Auto) 0.0, Neutrophils % (Manual) 93, Monocytes % (Manual) 7, Hypersegmented Neutrophils MODERATE, Toxic Granulation 2 +, Sodium Level 137, Potassium Level 3.4L, Chloride Level 92L, Carbon Dioxide Level 32, Anion Gap 13, Blood Urea Nitrogen 15, Creatinine 0.53L, Estimat Glomerular Filtration Rate > 60, BUN/Creatinine Ratio 28, Glucose Level 177H, Lactic Acid Level 1.78, Calcium Level 8.3L, Magnesium Level 1.9, Total Bilirubin 0.5, Aspartate Amino Transf (AST/SGOT) 54H, Alanine Aminotransferase ( ALT/SGPT) 77H, Alkaline Phosphatase 216H, Lactate Dehydrogenase 646H, Troponin I < 0.30, B-Type Natriuretic Peptide 120.3H, Total Protein 5.6L, Albumin 2.8L 10/10/16 22:00: Urine Color YELLOW, Urine Clarity CLEAR, Urine pH 6.5, Urine Specific [place] 1.010L, Urine Protein 3+H, Urine Glucose (UA) NEGATIVE, Urine Ketones NEGATIVE, Urine Nitrite NEGATIVE, Urine Bilirubin NEGATIVE, Urine Urobilinogen NORMAL, Urine Leukocyte Esterase NEGATIVE, Urine RBC (Auto) 3+H, Urine RBC 2-5H, Urine WBC RARE, Urine Crystals NONE, Urine Bacteria NONE, Urine Casts NONE, Urine Mucus NEGATIVE, Urine Culture Indicated NO 10/11/16 01:00: Stool Occult Blood Immunoassay POSITIVEH 10/11/16 04:40: White Blood Count 24.2H, Red Blood Count 3.73L, Hemoglobin 12.2L, Hematocrit 37L , Mean Corpuscular Volume 99, Mean Corpuscular Hemoglobin 33, Mean Corpuscular Hemoglobin Concent 33, Red Cell Distribution Width 17.0H, Platelet Count 212, Mean Platelet Volume 10.8H, Neutrophils (%) (Auto) 91H, Lymphocytes (%) (Auto) 2L, Monocytes (%) (Auto) 7, Eosinophils (%) (Auto) 0, Basophils (%) (Auto) 0, Neutrophils # (Auto) 22.0H, Lymphocytes # (Auto) 0.5L, Monocytes # (Auto) 1.7H, Eosinophils # (Auto) 0.0, Basophils # (Auto) 0.0, Sodium Level 137, Potassium Level 3.5L, Chloride Level 95L, Carbon Dioxide Level 37H, Anion Gap 6, Blood Urea Nitrogen 14, Creatinine 0.55L, Estimat Glomerular Filtration Rate > 60, BUN /Creatinine Ratio 25, Glucose Level 125H, Calcium Level 7.8L, Magnesium Level 1.7L, Total Bilirubin 0.5, Aspartate Amino Transf (AST/SGOT) 102H, Alanine Aminotransferase (ALT/SGPT) 69H, Alkaline Phosphatase 186H, Total Protein 6.2L, Albumin 2.4L, Phosphorus Level 4.0 A/P-Cardiology Assessment/Admission Diagnosis PAF with RVR, likely precipitated by pulm pathology Widespread 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 Switch to oral when able to take meds by mouth Not suitable of anticoag (active GI bleed) Replenish lytes Monitor labs I had a detailed discussion with his and answered questions Prognosis appears poor Clinical Quality Measures DVT/VTE Risk/Contraindication: Risk Factor Score Per Nursin RFS Level Per Nursing on Admit: 4+=Very High RUBEN RODAS MD FACP FACC CCDS Oct 11, 2016 09:02
[2016-10-11] MEDS ORDERED: ATOR80TA76 PO (09:52)
[2016-10-11] MEDS ORDERED: ALBU18HF2 INH (09:52)
[2016-10-11] MEDS ORDERED: OXYC15TA79 PO (09:52)
[2016-10-11] MEDS ORDERED: ZOLP10TA5 PO (09:52)
[2016-10-11] MEDS ORDERED: ALLO300T2 PO (09:52)
[2016-10-11] MEDS ORDERED: FENT1PAT11 TD (09:53)
[2016-10-11] MEDS: LEVOFLOXACIN 750 MG/D5W 150 ML PRE-MIX IV SCH (09:56)
[2016-10-11] MEDS ORDERED: SENN-140 PO (10:20)
[2016-10-11] MEDS ORDERED: POTA10TA36 PO (10:20)
[2016-10-11] MEDS ORDERED: ONDA8TAB12 PO (10:20)
[2016-10-11] MEDS ORDERED: ASPI-983 PO (10:20)
[2016-10-11] MEDS ORDERED: MULT-35 PO (10:20)
--- NOTE | 2016-10-11 10:55 | History & Physical-Hospitalist ---
HPI History of Present Illness: HPI/Chief Complaint CC: AFib with RVR with right lung pneumonia post obstructive presumed HPI: This is a 65yoWM pt from [place], [place]. Pt sees Dr. Suero for right lung cancer with widespread METS dx [address] Leon Review: Dr. 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 Suero Still on Cardizem drip for afib w/rvr Pt is on 3 abx including Vancomycin and Levaquin SW Review: Pt's family is reasonable Patient Interview: Pt's and daughter were visiting upon interview. 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 Pt's states that pt was a [employer] and then worked for a [employer] company. 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 Jimenez. Source: patient Exam Limitations: no limitations Date Seen 10/11/16 Time Seen by Provider: 10:00 Attending Physician Bijan Pemberton MD PCP No,Local Physician Referring Physician Date of Admission Oct 10, 2016 at 17:05 Home Medications & Allergies Home Medications Reviewed patient Home Medication Reconciliation Form Allergies Allergies Coded Allergies fluoxetine (Verified Allergy, Unknown, 09/08/16) tramadol (Verified Allergy, Unknown, 09/08/16) varenicline (Verified Allergy, Unknown, 09/08/16) Past Buflwvg-Qersld-Rltruq Hx Patient Social History Marrital Status: Employed/Student: retired ([employer] 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 [employer]) Alcohol Use: Denies Use Recreational Drug Use: No Smoking Status: Current Everyday Smoker Type Used: Cigarettes Physical Abuse Screen: No Sexual Abuse: No Recent Foreign Travel: No Contact w/other who traveled: No Recent Hopitalizations: No Recent Infectious Disease Expo: No Seasonal Allergies Seasonal Allergies: No Surgeries HX Surgeries: Yes (Port-A-Cath placement) Respiratory Hx Respiratory Disorders: Yes (lung cancer have 5 right) Respiratory Disorders: COPD, Pneumonia Cardiovascular Hx Cardiovascular Disorders: Yes Cardiac Disorders: Atrial Fibrillation (currently), High Cholesterol Neurological Hx Neurological Disorders: No Genitourinary Hx Genitourinary Disorders: No Gastrointestinal Hx Gastrointestinal Disorders: Yes Gastrointestinal Disorders: Gastroesophageal Reflux Musculoskeletal Hx Musculoskeletal Disorders: Yes Musculoskeletal Disorders: Arthritis, Gout Endocrine Hx Endocrine Disorders: No HEENT HX ENT Disorders: Yes HEENT Disorders: Cataract Loss of Vision: Denies Hearing Impairment: Denies Cancer Hx Cancer: Yes Cancer: Liver, Bone, Lung Psychosocial Hx Psychiatric Problems: Yes Behavioral Health Disorders: Depression Blood Transfusions Adverse Reaction to a Blood Tr: No Reviewed Nursing Assessment Reviewed/Agree w Nursing PMH: No Family Medical History Significant Family History: No Pertinent Family Hx Family Hx: Cardiovascular disease 19 FATHER ( at 52 from [place]) G8 BROTHER (One brother had failed heart transplant one brother CABG CHF [place]) Diabetes mellitus G8 SISTER Review of Systems Constitutional: see HPI EENTM: no symptoms reported Respiratory: cough, short of breath Cardiovascular: chest pain, palpitations Gastrointestinal: nausea, vomiting Genitourinary: no symptoms reported Musculoskeletal: back pain Skin: no symptoms reported Psychiatric/Neurological: Depressed All Other Systems Reviewed Negative Unless Noted: Yes Physical Exam Physical Exam Vital Signs Vital Sign - Last 12Hours 10/10/16 10/10/16 10/10/16 10/10/16 14:40 14:56 14:58 17:45 Temp 97.6 Pulse 140 Resp 16 B/P (MAP) 104/87 Pulse Ox 97 O2 Delivery Vapotherm O2 Flow Rate 40.00 FiO2 60 Capillary Refill : Less Than 3 Seconds General Appearance: No Apparent Distress, WD/WN, Chronically ill, Other ( sleeping) Eyes: Bilateral Eye Normal Inspection, Bilateral Eye PERRL HEENT: PERRL/EOMI, Normal ENT Inspection, Pharynx Normal Neck: Full Range of Motion, Normal Inspection, Non Tender, Supple, Carotid Bruit Respiratory: Chest Non Tender, Lungs Clear, No Accessory Muscle Use, No Respiratory Distress, Decreased Breath Sounds Cardiovascular: No Edema, No Gallop, No JVD, No Murmur, Normal Peripheral Pulses, Irregularly Irregular Gastrointestinal: Normal Bowel Sounds, No Organomegaly, No Pulsatile Mass, Non Tender, Soft Back: Normal Inspection, No CVA Tenderness, No Vertebral Tenderness Extremity: Normal Capillary Refill, Normal Inspection, Normal Range of Motion, Non Tender, No Calf Tenderness, No Pedal Edema Neurologic/Psychiatric: Other (drowsy) Skin: Normal Color, Warm/Dry Lymphatic: No Adenopathy Results Results/Procedures Lab Laboratory Tests 10/10/16 14:39 10/11/16 04:40 Assessment/Plan Admission Diagnosis Assessment: Acute right lung pneumonia likely obstructive Widespread lung cancer with metastasis Smoker Acute atrial fibrillation with rapid ventricular response requiring Cardizem drip Hypokalemia Leukocytosis due to illness Elevated liver enzymes due to metastasis Assessment and Plan Plan: Remove wedding ring due to edema occurring Palliative care consult Very poor prognosis Abx Rate control Clinical Quality Measures DVT/VTE Risk/Contraindication: Risk Factor Score Per Nursin RFS Level Per Nursing on Admit: 4+=Very High ENRIQUE JIMENEZ DO Oct 11, 2016 10:55
[2016-10-11] MEDS ORDERED: ACETAMINOPHEN 650 MG SUPP (TYLENOL) PR PRN (17:30)
[2016-10-11] MEDS ORDERED: ARTIFICAL TEARS 0.4 ML UNIT DOSE (REFRESH PLUS) OU PRN (17:30)
[2016-10-11] MEDS ORDERED: PROMETHAZINE INJ 25 MG/ML (PHENERGAN) AMP IVP PRN (17:30)
[2016-10-11] MEDS ORDERED: ARTIFICIAL TEARS OINT (LACRI-LUBE) 3.5 GM TUBE OU PRN (17:30)
[2016-10-11] MEDS ORDERED: ONDANSETRON 4 MG/2 ML (SDV) Z0FRAN IVP PRN (17:30)
[2016-10-11] MEDS ORDERED: RT-ALBUTEROL/IPRATROPIUM 3 ML (DUONEB) VIAL INH PRN (17:30)
[2016-10-11] MEDS ORDERED: SALIVA STIMULANT MOUTH SPRAY (BIOTENE) 1.5 OZ MM PRN (17:30)
[2016-10-11] MEDS: LORazepam INJ 2 MG/ML (ATIVAN) VIAL IVP PRN ×3 (17:40→22:58)
[2016-10-11] MEDS: morphine INJ 4 MG/ML 1 ML (VIAL/SYRINGE) IV PRN ×5 (17:40→22:58)
[2016-10-12] MEDS: LORazepam INJ 2 MG/ML (ATIVAN) VIAL IVP PRN ×9 (03:21→22:42)
[2016-10-12] MEDS: morphine INJ 4 MG/ML 1 ML (VIAL/SYRINGE) IV PRN ×11 (03:22→22:42)
--- NOTE | 2016-10-12 08:55 | CONSULTATION REPORT ---
DATE OF CONSULTATION: 10/11/2016 REFERRING PHYSICIAN: Milena Loco D.O. The patient is admitted to ICU bed 12. IMPRESSION: 1. 65-year-old male with recent diagnosis of extensive stage small cell lung cancer of the right upper lobe with extensive the liver and bone metastasis, status post palliative chemotherapy with carboplatin and etoposide regimen x1 cycle 4 weeks ago. 2. The patient had started second cycle of chemotherapy on 10/09/2016 but presented to the emergency room on 10/10/2016 with increasing shortness of breath, altered mental status and uncontrolled pain. Admitted to ICU with a diagnosis of atrial fibrillation with a rapid ventricular response, hypoxia and probable right upper lobe postobstructive pneumonia. 3. Uncontrolled pain in his hip as well as chest because of metastatic small cell lung cancer, was scheduled for radiation therapy palliatively to the left hip and to the right upper lobe lung mass, but currently on hold because of hospitalization. 4. Comparison of outside CT scan at the time of diagnosis and the current CT scan from this hospitalization shows evidence of progressive disease in the liver and probably in the lung. RECOMMENDATIONS: 1. Continue management of probable pneumonia as you are doing with broad-spectrum antibiotics. 2. Agree with cardiology evaluation for atrial fibrillation with rapid ventricular response and manage it medically. 3. Today I had an extensive discussion with the patient and family regarding the CT scan findings of progressive disease. I informed them that primary resistant small cell lung cancer does not behave very well and the chance of response with a second line chemotherapy is in the 40 to 45% range. He is not going to be a candidate for a clinical trial as he has to travel out of town frequently and his poor performance status may disqualify him. 4. Because of evidence of progressive disease by CT scan. I will withhold further chemotherapy at this point. I would recommend palliative radiation therapy to the left hip and the right upper lobe lung mass to control the pain. 5. Continue pain medications and titrate as needed to control his discomfort. 6. His overall prognosis is poor. The patient and his family understand this and does not want aggressive treatments for the cancer. 7. I will follow the patient with you. BRIEF HISTORY: Mr. Rico is a 65-year-old male who was initially seen by me on 09/08/2016 with a new diagnosis of extensive stage small cell lung cancer. The patient had developed chest pain during the previous few weeks and was evaluated at [place] emergency room. He was started on antibiotics without improvement and had a repeat ER visit with CT scan of the chest, which showed a large mass. He was sent to [facility] in [place] where he underwent a bronchoscopy with biopsy followed by a PET CT scan and MRI of the head with the diagnosis of small cell lung cancer. He had evidence of metastasis to the lymph nodes, extensive liver disease as well as to the bone. MRI of the head was negative. The patient wanted to be closer to home for chemotherapy and hence, I saw him in consultation and started him on first cycle of chemotherapy soon thereafter. He has had multiple problems following the first course of chemotherapy and did not tolerate this well. He was seen in the office on 10/09/2016 and started day 1 of cycle 2 chemotherapy but had to be hospitalized the next day because of altered mental status, shortness of breath and hypoxia. PAST MEDICAL HISTORY: Significant for: 1. Osteoarthritis and a history of gout. 2. Hypercholesterolemia diagnosed 5 years ago and on treatment. 3. Gastroesophageal reflux disease for several years. 4. He has a history of chronic prostatitis. PRIOR SURGERIES: Include: 1. Cystoscope for chronic prostatitis. 2. Left cataract surgery in 2010. 3. Bronchoscopy with biopsy of the lung mass in August 2016. SOCIAL HISTORY: The patient is and lives in [place], [place]. He has a stepdaughter who lives in [place], [place]. 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 He retired approximately 9 years ago. He has a 60 pack-year history of tobacco use. He quit smoking at the time of diagnosis. He uses alcohol socially and denied any recreational drug use. FAMILY HISTORY: Family history is only significant for an unknown malignancy in his half brother. No other malignancies in the family. Father had coronary artery disease and [place]. His half brother has history of hypertension and coronary artery disease. PHYSICAL EXAMINATION: Today showed an elderly male, weak appearing, answering some questions appropriately, although having difficulty remembering details. VITAL SIGNS: Temperature was 98, pulse rate of 123, respirations 15, blood pressure 102/90, oxygen saturation 97% on 6 liters of oxygen by nasal cannula. HEENT: Normocephalic with male pattern baldness. Extraocular muscles intact. Conjunctivae pink, oral mucosa moist. NECK: Supple with no JVD. No cervical, supraclavicular, or axillary lymphadenopathy palpable. CHEST: Chest examination showed port. LUNGS: With diminished breath sounds in the right lung with few rhonchi. No wheezes or rales heard. CARDIOVASCULAR EXAM: Was irregularly irregular, tachycardic with no murmurs. ABDOMEN: Soft with liver edge palpable below the costal margin. No splenomegaly or other masses palpable. EXTREMITIES: Showed 1+ edema around both ankles. NEUROLOGICAL EXAM: Showed no focal motor deficits. Overall motor strength was 4/5 bilaterally. LABORATORY: CBC done today showed WBC 24.2, hemoglobin 12.2, platelet count 212,000 with neutrophil count of 22. Chemistry panel done today showed potassium level of 3.5 and CO2 level of 37. BUN was 14 and creatinine 0.55. Nonfasting glucose was 125. AST was elevated at 102, ALT 69, alkaline phosphatase 186, and albumin level of 2.4. LDH was elevated at 646. CT scan of the chest and abdomen done at the emergency room on 10/10/2016 showed a large central right upper lobe mass confluent with right paratracheal and right hilar lymph node masses with associated right upper lobe consolidation, compatible with postobstructive atelectasis or pneumonia. Moderate right pleural effusion was present. CT scan of the abdomen showed numerous liver metastases with the largest lesion in the left hepatic lobe measuring 7.3 x 5.5 cm. The liver was almost completely replaced by tumor. Gallbladder wall thickening and pericholecystic fluid same. No calcified stones identified. DC images where compared to the outside CT scan from [facility] and a verbal report from Dr. Farr indicated there is definite progression of several of the liver lesions. The right upper lobe lung mass could not be completed as the current CT scan showed a confluent mass involving the hilar and mediastinal lymph nodes. Thank you for allowing me to participate in this patient's care. I will follow the patient with you and make appropriate recommendations. Job ID: [id number] Dictated Date: 10/11/2016 17:34:41 Pouring Crane Operator Date: 10/12/2016 08:34:36/luci
--- NOTE | 2016-10-12 10:29 | Progress Note-Hospitalist ---
Progress Note HPI/CC on Admission CC: AFib with RVR with right lung pneumonia post obstructive presumed HPI: This is a 65yoWM pt from [place], [place]. Pt sees Dr. Suero for right lung cancer with widespread METS dx [address] Leon Review: Dr. 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 Suero Still on Cardizem drip for afib w/rvr Pt is on 3 abx including Vancomycin and Levaquin SW Review: Pt's family is reasonable Patient Interview: Pt's and daughter were visiting upon interview. 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 Jimenez. Progress Notes/Assess & Plan Date Seen 10/12/16 Time Seen by Provider: 09:45 Admission Dx/Process Assessment: Acute right lung pneumonia likely obstructive Widespread lung cancer with metastasis Smoker Acute atrial fibrillation with rapid ventricular response requiring Cardizem drip Hypokalemia Leukocytosis due to illness Elevated liver enzymes due to metastasis Diagonsis/Assessment & Plan Chart Review: Placed in comfort care yesterday at 1700 on pt's request Patient Interview: Physical exam stable Palliative care saw pt today Pt's would like pt to have less sweet food, something more like peanut butter and crackers Delirious, no acute distress, no pain, at bedside Tachycardic and irregular Diminished breath sounds all [place] Assessment: End-of-life status with lung cancer with widespread metastasis Delirium Plan: Comfort care protocol Request food for family that is less sugar based Scribed by Diana Melendez under the direct supervision of Dr. Jimenez. ENRIQUE JIMENEZ DO Oct 12, 2016 10:29
--- NOTE | 2016-10-12 18:23 | Progress Note-Standard ---
Standard Progress Note Progress Notes/Assess & Plan Date Seen by Provider: Oct 12, 2016 Time Seen by Provider: 18:20 Progress/Assessment & Plan 65-year-old male with extensive stage small cell lung cancer who completed first course of chemotherapy with carboplatinum and etoposide regimen 4 weeks ago. Admitted with atrial fibrillation with rapid ventricular response. CT scan showing progressive disease. I had discussed the about stopping chemotherapy and proceeding with palliative radiation to the left hip and right upper lobe mass. Patient decided to proceed with best supportive care alone and his family is comfortable with this decision. Agree with this and proceed with best supportive care. Dr. Post is covering for me this weekend for any problems or help. His prognosis is poor. JAXSON PETTIT Oct 12, 2016 18:23
[2016-10-12] MEDS: GLYCOPYRROLATE 0.2 MG/ML (ROBINUL) 2 ML VIAL IV PRN ×2 (18:31→23:57)
[2016-10-13] MEDS: morphine INJ 4 MG/ML 1 ML (VIAL/SYRINGE) IV PRN ×12 (02:23→23:28)
[2016-10-13] MEDS: LORazepam INJ 2 MG/ML (ATIVAN) VIAL IVP PRN ×10 (02:23→23:28)
[2016-10-13] MEDS: GLYCOPYRROLATE 0.2 MG/ML (ROBINUL) 2 ML VIAL IV PRN ×2 (04:39→11:07)
--- NOTE | 2016-10-13 07:11 | Pulmonary Progress Note ---
Subjective Time Seen by Provider: 07:09 Subjective/Events-last exam No complications noted. Exam Exam Vital Signs Date Time Temp Pulse Resp B/P (MAP) Pulse Ox O2 Delivery O2 Flow Rate FiO2 10/13/16 06:39 Nasal Cannula 2.00 10/12/16 20:01 Nasal Cannula 2.00 10/12/16 19:40 95 Nasal Cannula 2.00 I & O 10/13/16 07:00 Intake Total 0 ml Output Total 1175 ml Balance -1175 ml General Appearance: No Apparent Distress, WD/WN, Chronically ill, Other ( sleeping) HEENT: PERRL/EOMI, Normal ENT Inspection, Pharynx Normal Neck: Full Range of Motion, Normal Inspection, Non Tender, Supple, Carotid Bruit Respiratory: Chest Non Tender, Lungs Clear, No Accessory Muscle Use, No Respiratory Distress, Decreased Breath Sounds Cardiovascular: No Edema, No Gallop, No JVD, No Murmur, Normal Peripheral Pulses, Irregularly Irregular Capillary Refill: Less Than 3 Seconds Extremity: Normal Capillary Refill, Normal Inspection, Normal Range of Motion, Non Tender, No Calf Tenderness, No Pedal Edema Neurologic/Psychiatric: Other (drowsy) Skin: Normal Color, Warm/Dry Lymphatic: No Adenopathy Assessment/Plan Assessment/Plan -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 232 Clinical Quality Measures DVT/VTE Risk/Contraindication: Risk Factor Score Per Nursin RFS Level Per Nursing on Admit: 4+=Very High DEVNI ISLAS DO Oct 13, 2016 07:11
[2016-10-13] MEDS ORDERED: SCOPOLAMINE 1.5 MG (TRANSDERM-SCOP) PATCH TOP SCH (08:00)
--- NOTE | 2016-10-13 11:37 | Progress Note-Hospitalist ---
Progress Note HPI/CC on Admission CC: AFib with RVR with right lung pneumonia post obstructive presumed HPI: This is a 65yoWM pt from [place], [place]. Pt sees Dr. Suero for right lung cancer with widespread METS dx [address] Leon Review: Dr. 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 Suero Still on Cardizem drip for afib w/rvr Pt is on 3 abx including Vancomycin and Levaquin SW Review: Pt's family is reasonable Patient Interview: Pt's and daughter were visiting upon interview. 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 Jimenez. Progress Notes/Assess & Plan Date Seen 10/13/16 Time Seen by Provider: 00:00 Admission Dx/Process Assessment: Acute right lung pneumonia likely obstructive Widespread lung cancer with metastasis Smoker Acute atrial fibrillation with rapid ventricular response requiring Cardizem drip Hypokalemia Leukocytosis due to illness Elevated liver enzymes due to metastasis Diagonsis/Assessment & Plan Comfort care protocol maintained. Assessment: End-of-life status with lung cancer with widespread metastasis Delirium Plan: Comfort care protocol ENRIQUE JIMENEZ DO Oct 13, 2016 11:37
== END 2016-10-14 04:48 | disposition expired | DRG 194 ==
LOC: EDUNIT# 14:27 → ER 14:28 → ICU 17:05 → 4TH 10-11 17:55
PROVIDERS: ADMIT Internal Medicine; ATTEND Internal Medicine
DX: J18.9 Pneumonia, unspecified organism (principal); C34.11 Malignant neoplasm of upper lobe, right bronchus or lung; C79.51 Secondary malignant neoplasm of bone; C78.7 Secondary malignant neoplasm of liver and intrahepatic bile duct; I48.0 Paroxysmal atrial fibrillation; E78.00 Pure hypercholesterolemia, unspecified; Z66 Do not resuscitate; Z51.5 Encounter for palliative care; F17.210 Nicotine dependence, cigarettes, uncomplicated; K21.9 Gastro-esophageal reflux disease without esophagitis; F32.9 Major depressive disorder, single episode, unspecified; K92.1 Melena; G89.3 Neoplasm related pain (acute) (chronic); E87.6 Hypokalemia; J90 Pleural effusion, not elsewhere classified; R41.0 Disorientation, unspecified
CPT/HCPCS: 36415; 71010; 71260; 74160; 80053; 81000; 82274; 83605; 83615; 83735; 83880; 84100; 84484; 85007; 85025; 85027; 87040; 93005; 93041; 94010; 94640; 96365; 96366; 96367; 96375